=== PATIENT | male | born 2000 | race Two or more races ===

== ENCOUNTER 2020-04-27 21:38 | Emergency (ER) | payer OTHER ==
[~2020-04-27] VITALS: Ht 177.8 cm; Wt 78.0 kg
--- NOTE | 2020-04-27 21:45 | PHYS DOC ---
General Adult HPI: HPI: ".. I don't feel right all over.. feels like I got brain fog.. and I ve had chest pain... reflux .. just not right the last couple ... months.,. I ve seen a couple of doctors..." " They did nt find any thing.. one put me on Meclizine... 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 Pt. last in last two weeks had constant chest pain central and Lt. There seems be also a component of GERD with complaints ofo chest pain. Has seen two other physicians one at [facility] at [facility], and Urgent Care. Patient denies any previous history of cardiac disorders. Patient denies any recall of viral or illness prior to the onset of symptoms 2 months ago. Has been healthy prior to approximately 2 months ago when he developed "Brain fog", fatigue, malaise. Patient states so far his grades have not suffered but he states thinking is difficult and not as rapid processing of information since onset of his symptoms. No recent travel. No specific ill contacts. No history immunosuppression. No history of illicit drug use. No history of head injury. Review of Systems: Review of Systems: Constitutional: Denies fever or chills Eyes: Denies change in visual acuity HENT: Denies nasal congestion or sore throat Respiratory: Denies cough or shortness of breath Cardiovascular: Complains of chest pain. Denies edema GI: Denies abdominal pain, nausea, vomiting, bloody stools or diarrhea : Denies dysuria Musculoskeletal: Denies back pain or joint pain Integument: Denies rash Neurologic: Denies headache, focal weakness or sensory changes . Complains of mental "fog". Endocrine: Denies polyuria or polydipsia Lymphatic: Denies swollen glands Psychiatric: Complains of anxiety Family History: Family History: Noncontributory to presentation Current Medications: Current Meds: See nursing for home meds Allergies: Allergies: No known drug allergies Physical Exam: PE: Constitutional: Well developed, well nourished, no acute distress, non-toxic appearance. [] HENT: Normocephalic, atraumatic, bilateral external ears normal, oropharynx moist, no oral exudates, nose normal. [] Eyes: PERRLA, EOMI, conjunctiva normal, no discharge. [] Neck: Normal range of motion, no tenderness, supple, no stridor. [] Cardiovascular:Heart rate regular rhythm, no murmur [] Lungs & Thorax: Bilateral breath sounds equal apex on auscultation [] Abdomen: Bowel sounds normal, soft, no tenderness, no masses, no pulsatile masses. [] Skin: Warm, dry, no erythema, no rash. [] Back: No tenderness, no CVA tenderness. [] Extremities: No tenderness, no cyanosis, no clubbing, ROM intact, no edema. No cording appreciated Neurologic: Alert and oriented X 3, normal motor function, normal sensory function, no focal deficits noted. DTRs +2 patella and brachial. Ambulatory without problems Psychologic: Affect anxious, judgement normal, mood normal. [] EKG: EKG: My interpretation EKG shows no acute morphology. Sinus rhythm at 60 [] Radiology/Procedures: Radiology/Procedures: [address] [address] IMAGING REPORT Signed PATIENT: CASEY OLIVO V ACCOUNT: [id number] : 2000 LOCATION: ER AGE: 20 SEX: M EXAM STATUS: REG ER ORD. PHYSICIAN: CHRISTIANA PATTON MD REASON: mental status change PROCEDURE: CT HEAD WO CONTRAST CT scan of the head without contrast 04/28/2020 Clinical History: Mental status change. Technique: Unenhanced, contiguous, 5 mm axial sections were obtained through the head. One or more of the following individualized dose reduction techniques were utilized for this study: 1. Automated exposure control. 2. Adjustment of the mA and/or kV according to patient size. 3. Use of iterative reconstruction technique. Findings: The ventricles and sulci are within normal limits in size and configu ration. No area of abnormal attenuation is seen involving brain parenchyma. No extra-axial fluid collection is noted. No skull fracture is seen. Impression: Negative study. Electronically signed by: Pablo Martinez MD (04/28/2020 12:20 AM) [id number] DICTATED AND SIGNED BY: PABLO MARTINEZ MD DATE: 04/28/20 0018 CC: CHRISTIANA PATTON MD; PCP,NO ~MTH0 0 [][place] [address] IMAGING REPORT Signed PATIENT: CASEY OLIVO V ACCOUNT: [id number] : 2000 LOCATION: ER AGE: 20 SEX: M EXAM STATUS: REG ER ORD. PHYSICIAN: CHRISTIANA PATTON MD REASON: cp PROCEDURE: PORTABLE CHEST 1V Exam: Chest one view INDICATION: Chest pain TECHNIQUE: Frontal view of the chest Comparisons: None FINDINGS: The cardiomediastinal silhouette and pulmonary vessels are within normal limits. The lung and pleural spaces are clear. IMPRESSION: No acute cardiopulmonary process. Electronically signed by: Foreign Pennington MD (04/27/2020 10:26 PM) [facility] DICTATED AND SIGNED BY: FOREIGN PENNINGTON MD DATE: 04/27/202225 CC: CHRISTIANA PATTON MD; PCP,NO ~MTH0 0 Heart Score: HEART Score for Chest Pain: HEART Score for Chest Pain Response (Comments) Value History Slighlty/Non-Suspicious 0 ECG Normal 0 Age < 45 0 Risk Factors No Risk Factors 0 Troponin < Normal Limit 0 Total 0 Risk Factors: Risk Factors: DM, Current or recent (<one month) smoker, HTN, HLP, family history of CAD, obesity. Risk Scores: Score 0 - 3: 2.5% MACE over next 6 weeks - Discharge Home Score 4 - 6: 20.3% MACE over next 6 weeks - Admit for Clinical Observation Score 7 - 10: 72.7% MACE over next 6 weeks - Early Invasive Strategies Course & Med Decision Making: Course & Med Decision Making Pertinent Labs and Imaging studies reviewed. (See chart for details) Suspect this is not a cardiac problem. Does appear to be a component of GERD. Patient follow-up primary care. Patient take Pepcid twice a day. Patient consider outpatient stress testing. Patient consider EGD to evaluate for esophagitis and gastritis. May be a component of anxiety or stress related to last year in school. May also be a post viral syndrome Covid/ MONO. Recommend follow-up with primary care for continuity of care. Issued a copy of CT, chest x-ray and EKG and pertinent lab findings. Reviewed findings in detail with patient as well as uncle who is at bedside. Patient to follow-up a must. Impression: 1. Chest pain 2. GERD 3. Possible post viral syndrome 4. Anxiety/stress [] Dragon Disclaimer: Dragfaye Disclaimer: This electronic medical record was generated, in whole or in part, using a voice recognition dictation system. Departure Departure: Referrals: PCP,PABLO (PCP) Scripts Famotidine (PEPCID) 20 Mg Tablet 20 MG PO BID for GERD for 30 Days, #60 TAB Prov: CHRISTIANA PATTON MD 04/28/20 Ivonne Disclaimer This chart was dictated in whole or in part using Voice Recognition software in a busy, high-work load, and often noisy Emergency Department environment. It may contain unintended and wholly unrecognized errors or omissions. CHRISTIANA PATTON MD Apr 27, 2020 21:45
--- NOTE | 2020-04-27 22:28 | RAD ---
Exam: Chest one view INDICATION: Chest pain TECHNIQUE: Frontal view of the chest Comparisons: None FINDINGS: The cardiomediastinal silhouette and pulmonary vessels are within normal limits. The lung and pleural spaces are clear. IMPRESSION: No acute cardiopulmonary process. Electronically signed by: Foreign Augustin MD (04/27/2020 10:26 PM) ALEKSANDAR
[2020-04-27] MEDS ORDERED: ASPIRIN 325 MG TABLET PO ONE (23:00)
[2020-04-27] MEDS ORDERED: IV RINGERS SOLUTION,LACTATED 1,000 ML IV SCH (23:00)
[2020-04-27 23:10] LABS: BASO # 0.1 x10^3/uL (0.0-0.2); BASO % 1 % (0-3); EOS # 0.5 x10^3/uL (0.0-0.7); EOS % 6 % (0-3); HEMATOCRIT 48.3 % (39.0-53.0); HEMOGLOBIN 16.3 g/dL (13.0-17.5); LYMPH # 2.9 x10^3/uL (1.0-4.8); LYMPH % 36 % (24-48); MEAN CORPUSCULAR HEMOGLOBIN 30 pg (25-35); MEAN CORPUSCULAR HGB CONC 34 g/dL (31-37); MEAN CORPUSCULAR VOLUME 90 fL (79-100); MONO # 0.6 x10^3/uL (0.0-1.1); MONO % 7 % (0-9); NEUT % 50 % (31-73); PLATELET COUNT 194 x10^3/uL (140-400); RED CELL DISTRIBUTION WIDTH 12.9 % (11.5-14.5)
[2020-04-27 23:25] LABS: BACTERIA,URINE 0 /HPF (0-FEW); BILIRUBIN,URINE NEG (NEG); CLARITY,URINE CLEAR; COLOR,URINE YELLOW; GLUCOSE,URINE NEG (NEG); NITRITE,URINE NEG (NEG); RBC,URINE OCC /HPF (0-2); UROBILINOGEN,URINE 0.2 mg/dL (0.2 mg/dL); WBC,URINE OCC /HPF (0-4)
--- NOTE | 2020-04-27 23:25 | EKG ---
[address] [address] Test Date: 2020-04-27 Test Time: 23:05:44 Pat Name: CASEY OLIVO Department: Room: Gender: M Air Traffic Controller: : 2000 Requested By: CHRISTIANA PATTON Order Number: [id number] Reading MD: Measurements Intervals [place] Rate: 60 P: 0 WI: 136 QRS: 36 QRSD: 98 T: 28 QT: 394 QTc: 394 Interpretive Statements SINUS RHYTHM NORMAL ECG RI6.01 No previous ECG available for comparison
[2020-04-27 23:28] LABS: CALCIUM 9.3 mg/dL (8.5-10.1); CREATININE 0.9 mg/dL (0.7-1.3); GFR 105.5; POTASSIUM 3.6 mmol/L (3.5-5.1)
[2020-04-27 23:37] LABS: ALBUMIN 4.5 g/dL (3.4-5.0); DIRECT BILIRUBIN 0.2 mg/dL (0.0-0.2); TOTAL BILIRUBIN 0.7 mg/dL (0.2-1.0); TOTAL PROTEIN 8.3 g/dL (6.4-8.2)
--- NOTE | 2020-04-28 00:22 | RAD ---
CT scan of the head without contrast 04/28/2020 Clinical History: Mental status change. Technique: Unenhanced, contiguous, 5 mm axial sections were obtained through the head. One or more of the following individualized dose reduction techniques were utilized for this study: 1. Automated exposure control. 2. Adjustment of the mA and/or kV according to patient size. 3. Use of iterative reconstruction technique. Findings: The ventricles and sulci are within normal limits in size and configuration. No area of abn ormal attenuation is seen involving brain parenchyma. No extra-axial fluid collection is noted. No sk ull fracture is seen. Impression: Negative study. Electronically signed by: Pablo Martinez MD (04/28/2020 12:20 AM) [id number]
[2020-04-28] MEDS ORDERED: FAMO-63 PO (00:32)
[2020-04-28 01:00] VITALS: BP 142/92
[2020-04-28] MEDS ORDERED: FAMOTIDINE 20 MG TABLET PO ONE (01:00)
== END 2020-04-28 01:00 | disposition home or self-care (01) ==
LOC: ER 21:38
DX: R07.89 Other chest pain (principal); K21.9 Gastro-esophageal reflux disease without esophagitis; F41.9 Anxiety disorder, unspecified; R41.82 Altered mental status, unspecified
CPT/HCPCS: 36415; 70450; 71045; 80048; 80076; 81001; 82550; 83690; 83735; 84443; 84484; 85025; 85379; 85610; 85730; 93005; 96360; 96361; 99285; J7120; 96365; 96366